=== PATIENT | female | born 1995 | race Caucasian/White ===

== ENCOUNTER → 2024-06-04 09:35 | Outpatient (BNVA) | payer OTHER, SELFPAY | PROVIDERS: PCP Family Medicine; Visit Provider Family Medicine | DX: Z13.6 Encounter for screening for cardiovascular disorders (principal); Z68.41 Body mass index [BMI] 40.0-44.9, adult | CPT/HCPCS: 80053; 80061; 83036; 84439; 84443; 85025 ==

== ENCOUNTER → 2024-06-08 15:04 | Outpatient (BNVA) | payer OTHER, SELFPAY | PROVIDERS: PCP Family Medicine; Visit Provider Nurse Practitioner Women's Health | DX: Z12.4 Encounter for screening for malignant neoplasm of cervix (principal); N92.6 Irregular menstruation, unspecified | CPT/HCPCS: 82306; 82670; 83001; 83002; 83520; 83525; 84146; 84402; 84403; 87624 ==

== ENCOUNTER → 2024-06-22 07:57 | Outpatient (BNVA) | payer OTHER, SELFPAY | PROVIDERS: PCP Family Medicine; Visit Provider Nurse Practitioner Women's Health | DX: N92.6 Irregular menstruation, unspecified (principal) | CPT/HCPCS: 76830 ==

== ENCOUNTER → 2024-07-06 07:59 | Outpatient (BNVA) | payer OTHER, SELFPAY | PROVIDERS: PCP Family Medicine; Visit Provider Nurse Practitioner Women's Health | DX: E28.2 Polycystic ovarian syndrome (principal) | CPT/HCPCS: 84144 ==

== ENCOUNTER → 2024-07-30 08:09 | Outpatient (BNVA) | payer OTHER, SELFPAY | PROVIDERS: PCP Family Medicine; Visit Provider Nurse Practitioner Women's Health | DX: E28.2 Polycystic ovarian syndrome (principal); Z31.69 Encounter for other general counseling and advice on procreation | CPT/HCPCS: 84144 ==

== ENCOUNTER → 2024-09-13 09:49 | Outpatient (BNVA) | payer OTHER, SELFPAY | PROVIDERS: PCP Family Medicine; Visit Provider Nurse Practitioner Women's Health | DX: E28.2 Polycystic ovarian syndrome (principal); N97.0 Female infertility associated with anovulation | CPT/HCPCS: 84144 ==

== ENCOUNTER → 2024-10-11 09:22 | Outpatient (BNVA) | payer BC, SELFPAY | PROVIDERS: PCP Family Medicine; Visit Provider Nurse Practitioner Women's Health | DX: N97.0 Female infertility associated with anovulation (principal); Z31.69 Encounter for other general counseling and advice on procreation | CPT/HCPCS: 84144 ==

== ENCOUNTER → 2024-10-13 09:18 | Outpatient (BNVA) | payer BC, SELFPAY | PROVIDERS: PCP Family Medicine; Visit Provider Nurse Practitioner Women's Health | DX: R30.0 Dysuria (principal) | CPT/HCPCS: 81000 ==

== ENCOUNTER → 2025-01-26 09:58 | Outpatient (BNVA) | payer BC, SELFPAY | PROVIDERS: PCP Family Medicine; Visit Provider Nurse Practitioner Women's Health | DX: N97.0 Female infertility associated with anovulation (principal) | CPT/HCPCS: 84702 ==

== ENCOUNTER → 2025-01-28 10:13 | Outpatient (BNVA) | payer BC, SELFPAY | PROVIDERS: PCP Family Medicine; Visit Provider Nurse Practitioner Women's Health | DX: Z34.90 Encounter for supervision of normal pregnancy, unspecified, unspecified trimester (principal) | CPT/HCPCS: 84702 ==

== ENCOUNTER → 2025-02-10 08:29 | Outpatient (BNVA) | payer BC, SELFPAY | PROVIDERS: PCP Family Medicine; Visit Provider Nurse Practitioner Women's Health | DX: N91.2 Amenorrhea, unspecified (principal) | CPT/HCPCS: 81025; 86850; 86900 ==

== ENCOUNTER → 2025-03-07 13:10 | Outpatient (BNVA) | payer BC, SELFPAY | PROVIDERS: PCP Family Medicine; Visit Provider Obstetrics & Gynecology | DX: Z34.90 Encounter for supervision of normal pregnancy, unspecified, unspecified trimester (principal) | CPT/HCPCS: 80307; 82950; 84315; 85025; 86592; 86762; 86803; 87086; 87340; 87491; 87591; 87661; 87806 ==